=== PATIENT | male | born 1980 | race Hispanic/Latino ===

== ENCOUNTER 2018-04-15 07:39 | Emergency (ER) | payer SELFPAY ==
[2018-04-15 08:28] LABS: Absolute Lymphocytes (CBC) 1.3 K/uL (0.7-4.9); Absolute Monocytes 0.5 K/uL (0.1-1.3); Basophils % 0.5 % (0-1.3); Eosinophils % 0.2 % (0-4.4); Hematocrit 46.9 % (39.6-49.0); Lymphocytes % 18.4 % (15.3-44.8); MCH 28.5 pg (27.0-35.0); MCV 84.8 fL (80-100); Monocytes % 7.3 % (3.3-12.3); RBC Red Blood Cell Count 5.53 M/uL (4.33-5.43)
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
--- NOTE | 2018-04-15 09:41 | RAD REPORT ---
EXAM DESCRIPTION: RAD - Elbow Left 2 View - 04/15/2018 8:52 am CLINICAL HISTORY: Left elbow pain status fall. FINDINGS: No fracture or dislocation is seen
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
[2018-04-15 09:52] LABS: BUN Blood Urea Nitrogen 6 mg/dL (7-18); Bicarbonate 25 mmol/L (21-32); Glucose Level 88 mg/dL (74-106); Potassium 3.7 mmol/L (3.5-5.1); Sodium Level 141 mmol/L (136-145)
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
== END 2018-04-15 10:22 | disposition home or self-care (01) ==
LOC: ER 07:39
DX: S39.012A Strain of muscle, fascia and tendon of lower back, initial encounter (principal); S46.912A Strain of unspecified muscle, fascia and tendon at shoulder and upper arm level, left arm, initial encounter; S20.219A Contusion of unspecified front wall of thorax, initial encounter; V49.59XA Passenger injured in collision with other motor vehicles in traffic accident, initial encounter
CPT/HCPCS: 36415; 70450; 71260; 72125; 74177; 80048; 80320; 85025; 86850; 86900; 86901; 99284; Q9967